=== PATIENT | female | born 1965 | race Caucasian/White ===

== ENCOUNTER 2024-02-27 10:07 | Outpatient (CLI) | payer OTHER, SELFPAY ==
--- NOTE | ~2024-02-27 | XR_ITS ---
AP and lateral views of the right hip Clinical history: Pain Findings: No acute fracture or dislocation is seen. Osseous alignment is anatomic. Right hip joint is intact. Soft tissues are unremarkable. Impression: No significant abnormality is seen. Reviewed, dictated and finalized at location . Impression: No significant abnormality is seen.
== END 2024-02-27 10:08 ==
LOC: GOSHIMG 10:08
PROVIDERS: PCP Clinical Nurse Specialist; Visit Provider Clinical Nurse Specialist
DX: M25.551 Pain in right hip (principal)
CPT/HCPCS: 73502